=== PATIENT | male | born 1980 | race African-American/Black ===

== ENCOUNTER 2020-09-04 15:32 | Emergency (ER) | payer OTHER ==
[2020-09-05 12:08] LABS: SARS-CoV-2 MS2 Positive; SARS-CoV-2 N Gene Positive; SARS-CoV-2 S Gene Positive; SARS-CoV-2 by NAA DETECTED (NotDetected); SARS-CoV-2 orf1ab Positive
== END 2020-09-04 17:05 | disposition home or self-care (01) ==
LOC: ERS 15:32
DX: U07.1 COVID-19 (principal); I10 Essential (primary) hypertension; F41.9 Anxiety disorder, unspecified; Z79.899 Other long term (current) drug therapy
CPT/HCPCS: 87635; 99283; U0003